=== PATIENT | female | born 2005 | race Caucasian/White ===

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

== ENCOUNTER 2025-06-29 21:57 | Outpatient (REF) | payer BC, SELFPAY ==
[2025-07-02 12:04] LABS: Chlamydia Result Negative (Negative); GC Result Negative (Negative)
== END 2025-06-29 21:58 | disposition home or self-care (01) ==
LOC: NCHCN 21:57
PROVIDERS: PCP Family Medicine; Visit Provider Family Medicine
DX: Z11.3 Encounter for screening for infections with a predominantly sexual mode of transmission (principal)
CPT/HCPCS: 87491; 87591